=== PATIENT | female | born 1965 | race Hispanic/Latino ===

== ENCOUNTER 2020-03-03 21:08 | Inpatient (IN) | payer BC, SELFPAY ==
[2020-03-03] MEDS ORDERED: Furosemide 40 MG/4 ML VIAL ONE (21:38)
[2020-03-03] MEDS ORDERED: Cefepime 2 GM VIAL ONE (21:38)
[2020-03-03] MEDS ORDERED: methylPREDNISolone Sod Succ/PF 125 MG/2 ML VIAL ONE (21:38)
[2020-03-03] MEDS ORDERED: Vancomycin 1 GM/200 ML BAG ONE (21:38)
[2020-03-03 21:40] LABS: Actual Bicarbonate (HCO3a) 20.5 mEq/L (22-28); Analyzer IN Cardio ER; Base Excess (BEa) -3.9 mEq/L (-2.0 to +3.0); CO2 Tension 35.3 mmHg (35.0-45.0); Calcium, Ionized (arterial) 1.19 mmol/L (1.12-1.30); Carboxyhemoglobin (COHb) 0.6 gm% (0.0-3.0); Hemoglobin (Hb) 13.2 g/dL (12.0-16.0); Potassium - ABG Lab 5.11 mmol/L (3.70-5.30); pH, Arterial 7.38 (7.35-7.45)
[2020-03-03 21:56] LABS: #Lymphocytes 0.7 thou/uL (1.20-3.40); #Monocytes 0.4 thou/uL (0.11-0.59); #Neutrophils 6.3 thou/uL (1.40-6.50); %Eosinophils 0.3 % (0.0-10.0); %Lymphocytes 9.3 % (21.0-51.0); %Monocytes 5.2 % (0.0-10.0); %Neutrophils 85.3 % (42.0-75.0); Hemoglobin 12.4 g/dL (12.0-16.0); Mean Corpuscular HGB CONC 34.6 g/dL (32.0-36.0); Mean Corpuscular Hemoglobin 31.1 pg (27.0-31.0); Mean Corpuscular Volume 89.7 fL (78.0-98.0); Mean Platelet Volume 8.6 fL (7.4-10.4); Platelet Count 276 thou/uL (130-400); RBC Distribution Width 11.4 % (11.5-14.5); Red Blood Cell (RBC) Count 3.98 mill/uL (4.20-5.40); White Blood Cell (WBC) Count 7.4 thou/uL (4.8-10.8)
[2020-03-03 22:10] LABS: O2 Tension (PaO2), arterial 50.4 mmHg (80.0-100.0)
[2020-03-03 22:11] LABS: Puncture Site R RADIAL
[2020-03-03 22:12] LABS: ALV-art Gradient 547.175 (0-20)
[2020-03-03 22:22] LABS: ALT (SGPT) 69 U/L (8-55); AST (SGOT) 210 U/L (5-34); Albumin 3.1 g/dL (3.5-5.0); Alkaline Phosphatase 634 U/L (40-110); Anion Gap 20 mmol/L (10-20); BUN (Urea Nitrogen) 20 mg/dL (9.8-20.1); Bilirubin, Total 0.5 mg/dL (0.2-1.2); Calc. Creatinine Clearance 0 mL/min (70-130); Calcium 8.8 mg/dL (7.8-10.44); Carbon Dioxide 18 mmol/L (22-29); Chloride 89 mmol/L (98-107); Estimated GFR-MDRD 55; Globulin 3.9 g/dL (2.4-3.5); Glucose 410 mg/dL (70-105); Potassium 5.5 mmol/L (3.5-5.1); Sodium 121 mmol/L (136-145)
[2020-03-03] MEDS ORDERED: Insulin Regular 300 UNITS/3 ML VIAL ONE (22:29)
--- NOTE | 2020-03-03 23:08 | PDOC.FPRHP ---
- History of Present Illness Chief Complaint: COVID +, SOB History of Present Illness: Tierra Humphreys is a 54 yo female who presents to the ED via EMS for shortness of breath, hypoxia. She tested positive for COVID on 02/29/20 with symptoms starting on February 24 per patient. She steadily declined and called EMS for her shortness of breath. EMS noted her to have an O2 saturation of 64% on arrival. On transport with non-rebreather O2 sats were in the 70's. She was placed on Bipap with sats in 80's initially. Patient endorses symptoms started with a sore throat on February 24. She endorses a cough as well that is non productive as well as a fever as high as 101F. She denies any chills. She reports that she feels less SOB on the BIpap in the ER. She also endorses diarrhea over the last couple of days. She reports a hx of DM that was diagnosed many years ago but she treats this "naturally." She does not see a doctor regularly and has not seen a doctor in over 10 years. She works at a [employer], does not have any exposures that she knows of and is unsure how she got COVID. She denies any other medical hx other than COVID. PCP - none ED Course: Novolin 10 u, Cefepime, Vanc, Duoneb, Methylprednisolone, lasix - Allergies/Adverse Reactions Allergies Allergy/AdvReac Type Severity Reaction Status Date / Time No Known Drug Allergies Allergy Unverified 03/03/20 23:55 - Home Medications Medication Instructions Recorded Confirmed Type No Known 03/04/20 03/04/20 History - History PMHx: DM PSHx: c section FHx: DM Social: Denies ever smoking cigarettes, does not drink alcohol or any drug use - Review of Systems General: reports: fever/chills, fatigue. denies: weight/appetite/sleep changes , night sweats Eyes: denies: vision changes ENT: denies: nasal congestion, rhinorrhea Respiratory: reports: cough, shortness of breath, exercise intolerance. denies : congestion Cardiovascular: denies: chest pain, palpitation, edema Gastrointestinal: reports: diarrhea. denies: nausea, vomiting, constipation, abdominal pain Genitourinary: denies: dysuria Skin: denies: rashes Musculoskeletal: denies: pain, tenderness, swelling Neurological: denies: weakness - Vital signs BP: 108/72 HR: 112 RR: 23 Tmax: 100.4 Pox: 98% on CPAP Wt: 83.9 kg - Physical Exam Constitutional: NAD, awake, alert and oriented, well developed HEENT: normocephalic and atraumatic, EOMI Neck: supple, FROM Heart: RRR, normal S1/S2, no murmurs/rubs/gallops, pulses present, no edema Lungs: CTAB, no respiratory distress, good air movement, no rales/rhonchi, no wheezing -Lungs: on Bipap Abdomen: soft, non-tender, bowel sounds present, no masses/distention Musculoskeletal: ROM grossly normal Neurological: no focal deficit Skin: no rash/lesions Psychiatric: normal mood and affect, good judgment and insight, intact recent and remote memory FMR H&P: Results - Labs Result Diagrams: 03/04/20 04:15 03/03/20 21:41 Lab results: WBC 7.4 thou/uL (4.8-10.8) 03/03/20 21:41 Hgb 12.4 g/dL (12.0-16.0) 03/03/20 21:41 Hct 35.7 % (36.0-47.0) L 03/03/20 21:41 MCV 89.7 fL (78.0-98.0) 03/03/20 21:41 Plt Count 276 thou/uL (130-400) 03/03/20 21:41 Neutrophils % 85.3 % (42.0-75.0) H 03/03/20 21:41 ABG pH 7.38 (7.35-7.45) 03/03/20 21:32 ABG pCO2 35.3 mmHg (35.0-45.0) 03/03/20 21:32 ABG pO2 50.4 mmHg (80.0-100.0) L* 03/03/20 21:32 Sodium 121 mmol/L (136-145) L 03/03/20 21:41 Potassium 5.5 mmol/L (3.5-5.1) H 03/03/20 21:41 Chloride 89 mmol/L (98-107) L 03/03/20 21:41 Carbon Dioxide 18 mmol/L (22-29) L 03/03/20 21:41 BUN 20 mg/dL (9.8-20.1) 03/03/20 21:41 Creatinine 1.05 mg/dL (0.6-1.1) 03/03/20 21:41 Glucose 410 mg/dL (70-105) H 03/03/20 21:41 Lactic Acid 2.8 mmol/L (0.5-2.2) H 03/03/20 21:41 Calcium 8.8 mg/dL (7.8-10.44) 03/03/20 21:41 Total Bilirubin 0.5 mg/dL (0.2-1.2) 03/03/20 21:41 AST 210 U/L (5-34) H 03/03/20 21:41 ALT 69 U/L (8-55) H 03/03/20 21:41 Alkaline Phosphatase 634 U/L (40-110) H 03/03/20 21:41 B-Natriuretic Peptide 44.9 pg/mL (0-100) 03/03/20 21:41 Serum Total Protein 7.0 g/dL (6.0-8.3) 03/03/20 21:41 Albumin 3.1 g/dL (3.5-5.0) L 03/03/20 21:41 - EKG Interpretation EKG: Sinus tachycardia - Radiology Interpretation Chest x-ray Status: image reviewed by me Additional comment: bilateral patchy infiltrates, no cardiomegaly, no pleural effusion noted - official read not back at this time FMR H&P: A/P - Problem List (1) COVID-19 Current Visit: Yes Status: Acute Code(s): U07.1 - COVID-19 (2) Diabetes Current Visit: Yes Status: Acute Code(s): E11.9 - TYPE 2 DIABETES MELLITUS WITHOUT COMPLICATIONS (3) Transaminitis Current Visit: Yes Status: Acute Code(s): R74.0 - NONSPEC ELEV OF LEVELS OF TRANSAMNS & LACTIC ACID DEHYDRGNSE (4) Hyponatremia Current Visit: Yes Status: Acute Code(s): E87.1 - HYPO-OSMOLALITY AND HYPONATREMIA (5) Hyperkalemia Current Visit: Yes Status: Acute Code(s): E87.5 - HYPERKALEMIA - Plan Acute Hypoxic Resp Failure 2/2 COVID-19 Patient with positive test from [facility] on 02/28. CXR showing multifocal infiltrates. LFTs elevated, lymphopenia, LA 2.8. - Admit to IMCU. Will consult pulm, appreciate recommendations. - Sent nursing communication to request COVID + test from [facility] - Patient satting well on Bipap in the ER, will continue to monitor. May need to change to HFNC if necessary. Can also try proning. - Will continue on azithromycin. Procal pending. Will likely need to be started on remdesivir and given plasma but cannot start until COVID + result is faxed from [facility] per charge nurse. - Th lovenox - Daily CXR ordered. - Tylenol PRN for fever. - Droplet precautions. Moderate Hyponatremia with hyperkalemia Na 121 -> corrected to 126 with hyperglycemia, K 5.5 on admission. Unsure etiology - possible SIADH vs hypoaldosterone vs polydypsia. s/p Lasix in the ER. Appears hyponatremia may be chronic as it was low in 2013 as well. - Will monitor BMP closely q 4-6hours; urine sodium, potassium, osm, serum osm pending - Will fluid restrict, 1000ml/day - Goal is to raise Na by 4-6 mEq/L in a 24hr period to avoid ODS. DM Type 2 Glucose in the 400s on admission. S/p 10u insulin in the ER. No anion gap noted. - Mod SS, will start at 10u qAM lantus as patient is insulin naive.Will adjust as needed. - Glucose q2hr until sugars around 180-200 - BHB, A1c pending Transaminitis - likely 2/2 to COVID Dispo: admit to IMCU, LOS > 48hrs Diet: CC PPx: Th Lovenox PCP: none - patient will need to have close f/u outpatient Case discussed with Dr. Ayala FMEmilia H&P: Upper Level - Plan Date/Time: 03/03/20 [id number] I, [], have evaluated this patient and agree with findings/plan as outlined by dental intern resident. Pertinent changes/additions are listed here. Addendum - Attending - Attending Attestation Date/Time: 03/03/20 1844 I personally evaluated the patient and discussed the management with Dr. Nieves I agree with the History, Examination, Assessment and Plan documented above with any addition or exceptions noted below. 54 yo female with untreated DM now with COVID19, presents via EMS for severe hypoxic respiratory failure. Symptoms started on 02/24. Positive for COVID19 on 02/28. 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 Symptoms included cough, fever (101) , fatigue, diarrhea, and progressive SOB. VS, labs, imaging reviewed. - Hypoxic respiratory failure: Continue BiPAP at this time. Requiring EPAP of 8. O2 sat improving. Now 95%. But requiring 100% FIO2. RT to follow throughout the night. Switch to high flow NC when able. Initial was very fearful to be intubated if needed and therefore refused. After reassurance that she would be given medication to make her fall asleep patient was agreeable for intubation if needed. Pulm consult. Repeat ABG as needed. - COVID19: Tested on 02/26. Positive on 02/28. Unable to treat until positive test results faxed. Will continue azithro at this time. No evidence of underlying lung dz. Did not continue steroids. LDH and CRP pending. Place on droplet and contact precautions. Therapuetic anticoagulant. - Untreated DM: No gap at this time. Start basal insulin. Trend POC glucose every [address] on Mild SS. A1c ordered. Adjust basal insulin as needed. Will notice elevated glucose due to steroid dose in ER. Check renal function and if proteinuria present. - Electrolyte abnormalities: Na and K. Rule out SIADH. Possibly chronic. Was low in 2013 but also noted to have glucose in the 400s at that time as well. Trend K. Has been given albuterol and insulin. EKG without T wave changes. Kayexalate if not improved on follow labs. - Transaminitis: Likely related to COVID19 but risk factors for NAFLD and complications related to untreated DM. US in AM. Trend. Consider FLP. - PPX: Lovenox and PPI - Consult: Pulm Jasen
[2020-03-03] MEDS ORDERED: Ondansetron PF 4 MG/2 ML Vial IVP PRN (23:50)
[2020-03-03] MEDS ORDERED: Loperamide HCl 2 MG CAP PO PRN (23:50)
[2020-03-03] MEDS ORDERED: Acetaminophen 650 MG/20.3 ML UDCUP PO PRN (23:50)
[2020-03-03] MEDS ORDERED: Acetaminophen 325 MG Suppository PR PRN (23:50)
[2020-03-03] MEDS ORDERED: Dextrose 5% in Water 1,000 ML IV PRN (23:57)
[2020-03-03] MEDS ORDERED: Dextrose 50% Abboject 50 ML SYRINGE SLOW IVP PRN (23:57)
[2020-03-04 00:57] LABS: Hemoglobin A1c Greater than 14.0 % (4.0-6.0)
[2020-03-04 01:05] LABS: Lactic Acid 2.1 mmol/L (0.5-2.2)
[2020-03-04 01:14] LABS: Troponin I Less than 0.010 ng/mL (< 0.028)
[2020-03-04] MEDS: HumaLOG 300 UNITS/3 ML VIAL SC PRN ×8 (02:02→16:18)
[2020-03-04 02:47] LABS: Bacteria/HPF None Seen HPF (None Seen); RBC/HPF 0-3 HPF (0-3); Squamous Epithelial 0-3 HPF (0-3); WBC/HPF 0-3 HPF (0-3)
[2020-03-04 02:49] LABS: Potassium, Urine 39.1 mmol/L
[2020-03-04 04:32] LABS: Band 31 % (5-11); Hemoglobin 12.3 g/dL (12.0-16.0); Lymphocytes 6 % (21-51); MDiff Complete? YES; Mean Corpuscular HGB CONC 32.4 g/dL (32.0-36.0); Mean Corpuscular Hemoglobin 29.1 pg (27.0-31.0); Mean Corpuscular Volume 89.6 fL (78.0-98.0); Mean Platelet Volume 8.2 fL (7.4-10.4); Monocytes 1 % (0-10); Neutrophil 62 % (42-75); Platelet Count 302 thou/uL (130-400); Platelet Morphology Comment Appears Adequate; RBC Distribution Width 11.6 % (11.5-14.5); Red Blood Cell (RBC) Count 4.24 mill/uL (4.20-5.40); White Blood Cell (WBC) Count 8.5 thou/uL (4.8-10.8)
[2020-03-04 04:53] LABS: Troponin I 0.014 ng/mL (< 0.028)
[2020-03-04 04:57] LABS: ALT (SGPT) 78 U/L (8-55); AST (SGOT) 195 U/L (5-34); Albumin 3.2 g/dL (3.5-5.0); Anion Gap 17 mmol/L (10-20); Bilirubin, Total 0.4 mg/dL (0.2-1.2); Calc. Creatinine Clearance 60 mL/min (70-130); Calcium 8.9 mg/dL (7.8-10.44); Carbon Dioxide 20 mmol/L (22-29); Chloride 89 mmol/L (98-107); Estimated GFR-MDRD 47; Globulin 3.9 g/dL (2.4-3.5); Glucose 455 mg/dL (70-105); Protein, Total 7.1 g/dL (6.0-8.3); Sodium 121 mmol/L (136-145)
[2020-03-04 05:11] LABS: BUN (Urea Nitrogen) 24 mg/dL (9.8-20.1)
[2020-03-04] MEDS ORDERED: Insulin Regular 300 UNITS/3 ML VIAL IVP SCH (06:30)
--- NOTE | 2020-03-04 06:33 | PDOC.FM ---
- Subjective Subjective: Pt states that she is feeling a little better. She feels thirsty at this time and reports frequent urination prior to admission. She states she is still feeling short of breath. - Objective MAR Reviewed: Yes Vital Signs & Weight: Vital Signs (12 hours) Temp Pulse Pulse Ox 03/04/20 02:25 88 03/04/20 01:30 100 03/04/20 01:15 99.5 F Weight Weight 70.806 kg Most Recent Monitor Data Heart Rate from ECG 80 NIBP 130/84 NIBP BP-Mean 99 Respiration from ECG 19 SpO2 90 I&O: 03/02/20 03/03/20 03/04/20 06:59 06:59 06:59 Intake Total 80 Output Total 525 Balance -445 Result Diagrams: 03/04/20 04:15 03/04/20 10:08 Phys Exam - Physical Examination Constitutional: NAD Dry mm Diffuse rhonci Cardiovascular: RRR, no significant murmur Gastrointestinal: soft, non-tender, no distention, positive bowel sounds Musculoskeletal: no edema, pulses present Neurological: moves all 4 limbs Psychiatric: A&O x 3 Skin: cap refill <2 seconds Deviation from normal: Poor skin turgor Dx/Plan (1) COVID-19 Code(s): U07.1 - COVID-19 Status: Acute (2) Diabetes Code(s): E11.9 - TYPE 2 DIABETES MELLITUS WITHOUT COMPLICATIONS Status: Acute (3) Hyponatremia Code(s): E87.1 - HYPO-OSMOLALITY AND HYPONATREMIA Status: Acute - Plan Plan: Acute hypoxic respiratory failure 2/2 COVID-19 -Symptoms February 24, positive February 28 -Provide supportive care, will address COVID specific medications once we have received her COVID test -CXR shows bilateral opacities, worse on the right -Procal positive, will continue azithromycin and rocephin for CAP DM2 poorly controlled -Glucose still elevated -Giving 10 units of regular insulin IV this AM -Continue lantus for retirement control, will titrate up -BHB slightly elevated, pt is non-acidotic, anion gap is 12, Bicarb is 20 Hyponatremia -127 corrected -Checking lipid panel and TSH Transaminitis -Covid vs other etiologies CKD 3 -Mild bump in Cr, will trend during hospitalization Dehydration -Likely significantly fluid down -Will give fluids, pt has had decreased urine output since admission Addendum - Attending - Attending Attestation Date/Time: 03/04/20 2845 I personally evaluated the patient and discussed the management with Dr. Simms. I agree with the History, Examination, Assessment and Plan documented above with any addition or exceptions noted below. Patient here for COVID related hypoxic resp failure and pneumonia. Reports some breathing improvement today. COntinue usual care, Pulm consult. Once we get the confirmation lab from OSH, will work on convalescent plasma and possibly Remdesevir.
[2020-03-04 06:38] LABS: Alkaline Phosphatase 650 U/L (40-110)
--- NOTE | 2020-03-04 07:45 | RAD ---
EXAM: Single view of the chest HISTORY: Covid positive with dyspnea COMPARISON: 03/03/2020 FINDINGS: Single view of the chest shows a normal sized cardiomediastinal silhouette. Stable multifo andrew infiltrates are seen in the lungs. No pleural effusion is seen. The bones are unremarkable. IMPRESSION: Stable multifocal infiltrates
[2020-03-04] MEDS ORDERED: predniSONE 20 MG TAB PO SCH (08:00)
[2020-03-04] MEDS ORDERED: cefTRIAXone\\ROCEPHIN 1 GM in Sodium Chloride 0.9% 100 ML IVPB SCH (08:00)
[2020-03-04] MEDS: Azithromycin 250 MG TAB PO SCH (08:15)
[2020-03-04] MEDS: Enoxaparin Sodium 80 MG/0.8 ML SYRINGE SC SCH (08:21)
[2020-03-04] MEDS ORDERED: Lactated Ringer's 1,000 ML IV SCH (08:30)
[2020-03-04] MEDS ORDERED: Insulin Glargine 10 UNITS in Pre-Filled Syringe 1 EACH SC SCH (09:00)
[2020-03-04] MEDS ORDERED: Enoxaparin Sodium 40 MG/0.4 ML SYRINGE SC SCH (09:00)
--- NOTE | 2020-03-04 09:32 | RAD ---
PORTABLE CHEST: HISTORY: Positive COVID. COMPARISON: 09/03/2014 exam. FINDINGS: There are extensive bilateral infiltrates much more marked in the right upper and lower lung zones. IMPRESSION: Extensive infiltrative lung changes. POS: AGAPITO
[2020-03-04] MEDS: Lactated Ringer's 1,000 ML IV SCH ×2 (10:10→16:18)
[2020-03-04 10:36] LABS: Anion Gap 15 mmol/L (10-20); Anion Gap 18 mmol/L (10-20); BUN (Urea Nitrogen) 28 mg/dL (9.8-20.1); BUN (Urea Nitrogen) 29 mg/dL (9.8-20.1); Calc. Creatinine Clearance 74 mL/min (70-130); Calc. Creatinine Clearance 77 mL/min (70-130); Calcium 8.8 mg/dL (7.8-10.44); Carbon Dioxide 20 mmol/L (22-29); Chloride 92 mmol/L (98-107); Estimated GFR-MDRD 60; Estimated GFR-MDRD 63; Glucose 303 mg/dL (70-105); Glucose 307 mg/dL (70-105); Potassium 4.7 mmol/L (3.5-5.1); Sodium 122 mmol/L (136-145); Sodium 125 mmol/L (136-145)
[2020-03-04 10:38] LABS: Cardiac Risk 4.6 (Less than 4.5)
[2020-03-04] MEDS ORDERED: Tocilizumab 400 MG in Sodium Chloride 0.9% 80 ML IV SCH (11:30)
--- NOTE | 2020-03-04 12:38 | CON ---
DATE OF CONSULTATION: 03/04/2020 CONSULTING PHYSICIAN: [employer]. REASON FOR CONSULTATION: COVID-19 pneumonia. HISTORY OF PRESENT ILLNESS: A 54-year-old female, who became short of breath around 02/28. She was seen at [facility]. She was tested for COVID and the result came back two days later, positive. She has been worsening at home. She came into the ER last night complaining shortness of breath. She was found to be severely hypoxemic, was placed on high-flow oxygen. I have been asked to consult for the potential of starting the patient on Remdesivir and IL-6 inhibitor. Currently, we do not have a copy of the test result, but the resident is going to obtain that as we need to prove this in order to give the treatment above. PAST MEDICAL HISTORY: Diabetes mellitus. PAST SURGICAL HISTORY: . FAMILY MEDICAL HISTORY: Diabetes. SOCIAL HISTORY: Does not smoke. Does not consume alcohol. Does not use illicit drugs. REVIEW OF SYSTEMS: Remarkable for shortness of breath, dry cough, fever, and chills. PHYSICAL EXAMINATION: VITAL SIGNS: Temperature 97.7, pulse 82, blood pressure 113/74, and O2 saturation 92%, she is on 90% high-flow oxygen. HEENT: Unremarkable. NECK: No adenopathy or JVD. LUNGS: Diffuse crackles. CARDIAC: S1 and S2. Regular. ABDOMEN: Soft. EXTREMITIES: No edema. LABORATORY DATA: White blood cell count 8.5, hematocrit 38, and platelet count 302, 31% bands and 6% lymphocytes. A pH of 7.38, pCO2 of 35, and pO2 of 50. Sodium 122, potassium 4.7, chloride 92, CO2 of 20, BUN 29, creatinine 0.9, and glucose 303. X-ray shows diffuse bilateral infiltrates. ASSESSMENT: 1. COVID-19 pneumonia. 2. Acute hypoxic respiratory failure. PLAN: We do need to obtain the results of the COVID-19 tests from [facility]. After that, she would be an excellent candidate for Remdesivir, convalescence serum. IL-6 inhibitor can be infused if she continues to worsen. I agree with the dexamethasone. I would keep her on high-flow as long as possible to try to avoid intubating her. Job ID: [id number]
[2020-03-04 14:33] LABS: Anion Gap 14 mmol/L (10-20); BUN (Urea Nitrogen) 30 mg/dL (9.8-20.1); Calc. Creatinine Clearance 83 mL/min (70-130); Calcium 8.8 mg/dL (7.8-10.44); Carbon Dioxide 22 mmol/L (22-29); Chloride 92 mmol/L (98-107); Estimated GFR-MDRD 68; Glucose 273 mg/dL (70-105); Potassium 4.6 mmol/L (3.5-5.1); Sodium 123 mmol/L (136-145)
[2020-03-04 18:40] LABS: Anion Gap 14 mmol/L (10-20); BUN (Urea Nitrogen) 29 mg/dL (9.8-20.1); Calc. Creatinine Clearance 88 mL/min (70-130); Carbon Dioxide 22 mmol/L (22-29); Chloride 94 mmol/L (98-107); Estimated GFR-MDRD 73; Glucose 196 mg/dL (70-105); Potassium 4.7 mmol/L (3.5-5.1); Sodium 125 mmol/L (136-145)
[2020-03-04] MEDS: Dexamethasone 4 mg/ml Vial SLOW IVP SCH (20:08)
[2020-03-04 22:21] LABS: Anion Gap 13 mmol/L (10-20); BUN (Urea Nitrogen) 28 mg/dL (9.8-20.1); Calc. Creatinine Clearance 96 mL/min (70-130); Calcium 8.8 mg/dL (7.8-10.44); Carbon Dioxide 23 mmol/L (22-29); Chloride 95 mmol/L (98-107); Estimated GFR-MDRD 81; Glucose 151 mg/dL (70-105); Potassium 4.6 mmol/L (3.5-5.1); Sodium 126 mmol/L (136-145)
[2020-03-05] MEDS ORDERED: hydrOXYzine 25 MG TAB PO SCH (05:30)
[2020-03-05 06:00] LABS: Band 17 % (5-11); Hemoglobin 12.7 g/dL (12.0-16.0); Lymphocytes 9 % (21-51); MDiff Complete? YES; Mean Corpuscular HGB CONC 34.1 g/dL (32.0-36.0); Mean Corpuscular Hemoglobin 30.4 pg (27.0-31.0); Mean Corpuscular Volume 89.3 fL (78.0-98.0); Mean Platelet Volume 8.1 fL (7.4-10.4); Monocytes 3 % (0-10); Neutrophil 71 % (42-75); Platelet Count 349 thou/uL (130-400); Platelet Morphology Comment Appears Adequate; RBC Distribution Width 11.5 % (11.5-14.5); Red Blood Cell (RBC) Count 4.19 mill/uL (4.20-5.40); White Blood Cell (WBC) Count 11.8 thou/uL (4.8-10.8)
--- NOTE | 2020-03-05 06:11 | PDOC.FM ---
- Subjective Subjective: Pt required increased respiratory support overnight to the point of BiPAP. She states currently she is feeling better. She is hungry and is asking for food. - Objective Vital Signs & Weight: Vital Signs (12 hours) Pulse Pulse Ox 03/05/20 01:54 78 96 03/04/20 20:00 94 L Weight Admit Weight 70.806 kg Weight 70.806 kg Most Recent Monitor Data Heart Rate from ECG 84 NIBP 159/100 NIBP BP-Mean 119 Respiration from ECG 24 SpO2 92 I&O: 03/03/20 03/04/20 03/05/20 06:59 06:59 06:59 Intake Total 80 3180 Output Total 525 1375 Balance -445 1805 Result Diagrams: 03/05/20 05:36 03/05/20 05:36 Phys Exam - Physical Examination Constitutional: NAD HEENT: moist MMs Neck: no JVD Diffuse Rhonchi, fair air movement Cardiovascular: RRR, no significant murmur Gastrointestinal: soft, non-tender, no distention, positive bowel sounds Musculoskeletal: no edema, pulses present Neurological: moves all 4 limbs Psychiatric: A&O x 3 Skin: cap refill <2 seconds Dx/Plan (1) COVID-19 Code(s): U07.1 - COVID-19 Status: Acute (2) Diabetes Code(s): E11.9 - TYPE 2 DIABETES MELLITUS WITHOUT COMPLICATIONS Status: Acute (3) Hyponatremia Code(s): E87.1 - HYPO-OSMOLALITY AND HYPONATREMIA Status: Acute - Plan Plan: Acute hypoxic respiratory failure 2/2 COVID-19 -Symptoms February 24, positive February 28 -Provide supportive care, pt has received IL-6 inhibitor, and convalescent plasma -CXR shows bilateral opacities, worse on the right AM xray is unimproved -Procal positive, will continue azithromycin and rocephin for CAP DM2 poorly controlled -Giving 10 units of regular insulin IV this AM -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 Simms. I agree with the History, Examination, Assessment and Plan documented above with any addition or exceptions noted below.
[2020-03-05 06:24] LABS: ALT (SGPT) 66 U/L (8-55); AST (SGOT) 90 U/L (5-34); Albumin 3.1 g/dL (3.5-5.0); Alkaline Phosphatase 685 U/L (40-110); Anion Gap 16 mmol/L (10-20); BUN (Urea Nitrogen) 25 mg/dL (9.8-20.1); Bilirubin, Total 0.2 mg/dL (0.2-1.2); Calc. Creatinine Clearance 101 mL/min (70-130); Calcium 8.6 mg/dL (7.8-10.44); Carbon Dioxide 20 mmol/L (22-29); Chloride 98 mmol/L (98-107); Estimated GFR-MDRD 86; Globulin 3.6 g/dL (2.4-3.5); Glucose 172 mg/dL (70-105); Potassium 4.8 mmol/L (3.5-5.1); Protein, Total 6.7 g/dL (6.0-8.3); Sodium 129 mmol/L (136-145)
[2020-03-05] MEDS ORDERED: hydrOXYzine 25 MG TAB PO PRN (07:28)
[2020-03-05 08:31] LABS: Base Excess (BEa) -0.6 mEq/L (-2.0 to +3.0); CO2 Tension 39.3 mmHg (35.0-45.0); Calcium, Ionized (arterial) 1.21 mmol/L (1.12-1.30); Hemoglobin (Hb) 13.2 g/dL (12.0-16.0); Potassium - ABG Lab 4.53 mmol/L (3.70-5.30)
[2020-03-05] MEDS: Azithromycin 250 MG TAB PO SCH (08:46)
[2020-03-05] MEDS: Enoxaparin Sodium 80 MG/0.8 ML SYRINGE SC SCH (08:47)
[2020-03-05] MEDS: Dexamethasone 4 mg/ml Vial SLOW IVP SCH ×2 (08:47→20:22)
[2020-03-05 08:51] LABS: Puncture Site L.R.
[2020-03-05 08:52] LABS: ALV-art Gradient 381.975 (0-20)
[2020-03-05] MEDS ORDERED: cefTRIAXone\\ROCEPHIN 1 GM in Sodium Chloride 0.9% 100 ML IVPB SCH (09:00)
[2020-03-05] MEDS ORDERED: Insulin Glargine 15 UNITS in Pre-Filled Syringe 1 EACH SC SCH (09:00)
--- NOTE | 2020-03-05 09:07 | RAD ---
PORTABLE CHEST: DATE: 03/05/2020. PROVIDED CLINICAL HISTORY: Respiratory insufficiency. COMPARISON: 03/04/2020. FINDINGS: Significant interval change with respect to the prior examination is not apparent. IMPRESSION: As above. POS: DAVID
--- NOTE | 2020-03-05 09:50 | PRG ---
DATE OF SERVICE: 03/05/2020 SUBJECTIVE: The patient is doing better. She is resting comfortably on BiPAP, had no complaints. OBJECTIVE: VITAL SIGNS: Temperature 98.2, pulse 87, blood pressure 162/102, O2 saturation 97%. HEENT: Unremarkable. NECK: No JVD. LUNGS: Few crackles. CARDIAC: S1 and S2. Regular. ABDOMEN: Soft. EXTREMITIES: No edema. LABORATORY DATA: White blood cell count 11.8, hematocrit 37.4, and platelet count 349. D-dimer 1.96, pH of 7.4, pCO2 of 39, pO2 of 68 on BiPAP 16/8, FiO2 of 70%. Sodium 129, potassium 4.8, chloride 98, CO2 of 20, BUN 25, creatinine 0.7, glucose 172, AST 90, ALT 66. The patient looks like she received convalescent serum yesterday. She also got IL-6 inhibitor and is on dexamethasone. ASSESSMENT: 1. Coronavirus disease 2019 pneumonia with acute respiratory failure requiring noninvasive ventilation. 2. Elevated liver enzymes, which eliminated her as a candidate for Remdesivir. Plan, wean FiO2 as tolerated. 3. Can alternate between BiPAP and high-flow oxygen. 4. We would consider stopping Rocephin. 5. Continue dexamethasone. Job ID: [id number]
[2020-03-05] MEDS: HumaLOG 300 UNITS/3 ML VIAL SC PRN ×3 (11:51→20:36)
[2020-03-06 03:58] LABS: Band 1 % (5-11); Hemoglobin 12.8 g/dL (12.0-16.0); Lymphocytes 3 % (21-51); MDiff Complete? YES; Mean Corpuscular HGB CONC 34.1 g/dL (32.0-36.0); Mean Corpuscular Hemoglobin 30.3 pg (27.0-31.0); Mean Platelet Volume 7.6 fL (7.4-10.4); Monocytes 4 % (0-10); Neutrophil 92 % (42-75); Platelet Count 437 thou/uL (130-400); Platelet Morphology Comment Appears Increased; RBC Distribution Width 11.7 % (11.5-14.5); RBC Morphology Normal; Red Blood Cell (RBC) Count 4.24 mill/uL (4.20-5.40); White Blood Cell (WBC) Count 12.3 thou/uL (4.8-10.8)
[2020-03-06 04:50] LABS: ALT (SGPT) 56 U/L (8-55); AST (SGOT) 46 U/L (5-34); Alkaline Phosphatase 585 U/L (40-110); Anion Gap 11 mmol/L (10-20); BUN (Urea Nitrogen) 25 mg/dL (9.8-20.1); Bilirubin, Total 0.3 mg/dL (0.2-1.2); CRP (Inflammatory) 5.97 mg/dL (= or < 0.5); Calc. Creatinine Clearance 103 mL/min (70-130); Calcium 8.5 mg/dL (7.8-10.44); Carbon Dioxide 27 mmol/L (22-29); Chloride 99 mmol/L (98-107); Estimated GFR-MDRD 90; Globulin 3.5 g/dL (2.4-3.5); Glucose 161 mg/dL (70-105); Potassium 4.4 mmol/L (3.5-5.1); Protein, Total 6.5 g/dL (6.0-8.3); Sodium 133 mmol/L (136-145)
--- NOTE | 2020-03-06 06:11 | PDOC.FM ---
- Subjective Subjective: Pt states that she is feeling better this morning. Nursing reports she has tolerated Bipap overnight with occasional sips of water. - Objective MAR Reviewed: Yes Vital Signs & Weight: Vital Signs (12 hours) Temp Pulse Pulse Ox 03/06/20 04:00 98.2 F 03/06/20 02:56 72 03/06/20 00:00 97.8 F 03/05/20 22:50 83 03/05/20 20:00 97.6 F 91 L Weight Admit Weight 70.806 kg Weight 69.207 kg Most Recent Monitor Data Heart Rate from ECG 73 NIBP 147/86 NIBP BP-Mean 106 Respiration from ECG 21 SpO2 91 I&O: 03/04/20 03/05/20 03/06/20 06:59 06:59 06:59 Intake Total 80 5300 870 Output Total 525 1750 1325 Balance -445 2810 455 Result Diagrams: 03/06/20 03:24 03/06/20 03:24 Phys Exam - Physical Examination Constitutional: NAD On bipap Diffuse rhonchi Cardiovascular: RRR, no significant murmur Gastrointestinal: soft, non-tender, no distention, positive bowel sounds Musculoskeletal: no edema, pulses present Neurological: moves all 4 limbs Psychiatric: A&O x 3 Skin: cap refill <2 seconds Dx/Plan (1) COVID-19 Code(s): U07.1 - COVID-19 Status: Acute (2) Diabetes Code(s): E11.9 - TYPE 2 DIABETES MELLITUS WITHOUT COMPLICATIONS Status: Acute (3) Hyponatremia Code(s): E87.1 - HYPO-OSMOLALITY AND HYPONATREMIA Status: Acute - Plan Plan: Acute hypoxic respiratory failure 2/2 COVID-19 -Symptoms February 24, positive February 28 -Provide supportive care, pt has received IL-6 inhibitor, and convalescent plasma -CXR shows bilateral opacities, worse on the right AM xray is unimproved -Procal positive, will continue azithromycin and rocephin for CAP DM2 poorly controlled -Giving 10 units of regular insulin IV this AM -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
--- NOTE | 2020-03-06 08:22 | RAD ---
PORTABLE CHEST: HISTORY: CCU followup. Ventilator followup. COMPARISON: 03/05/2020. FINDINGS: Hazy infiltrates throughout the right lung and left perihilar and left lower lung infiltrates. Bivins samm left hemidiaphragm. IMPRESSION: Stable findings from yesterday. POS: AGW
[2020-03-06] MEDS ORDERED: Insulin Glargine 20 UNITS in Pre-Filled Syringe 1 EACH SC SCH (09:00)
[2020-03-06 09:10] LABS: Actual Bicarbonate (HCO3a) 28.9 mEq/L (22-28); Base Excess (BEa) 4.2 mEq/L (-2.0 to +3.0); CO2 Tension 43.7 mmHg (35.0-45.0); Calcium, Ionized (arterial) 1.18 mmol/L (1.12-1.30); Carboxyhemoglobin (COHb) 0.4 gm% (0.0-3.0); Hemoglobin (Hb) 13.8 g/dL (12.0-16.0); Potassium - ABG Lab 4.45 mmol/L (3.70-5.30); pH, Arterial 7.44 (7.35-7.45)
[2020-03-06 09:15] LABS: O2 Tension (PaO2), arterial 50.2 mmHg (80.0-100.0); Puncture Site RRA
[2020-03-06 09:16] LABS: ALV-art Gradient 322.975 (0-20)
[2020-03-06] MEDS: Azithromycin 250 MG TAB PO SCH (09:32)
[2020-03-06] MEDS: Dexamethasone 4 mg/ml Vial SLOW IVP SCH ×2 (09:38→20:21)
[2020-03-06] MEDS: Enoxaparin Sodium 80 MG/0.8 ML SYRINGE SC SCH (09:38)
--- NOTE | 2020-03-06 11:41 | PRG ---
DATE OF SERVICE: 03/06/2020 Please see note from Dr. Simms, for which, I agree. The patient was seen, discussed, evaluated, and examined with the residents. This is an unfortunate COVID positive patient, who is requiring BiPAP with FiO2 of 0.7 to keep herself oxygenated. She is currently oxygenating fairly well. Pulmonary is involved as well. She is still on azithromycin and Decadron twice daily. Controlling her sugars as she initially came in, her hemoglobin A1c was 14. Unfortunately, because of liver function test was elevated, was not a candidate for antivirals, but did get IL6 inhibitor and convalescent plasma. She is still on Rocephin . Otherwise, supportive management and full code may end up needing intubation, we will try to avoid that as much as we can obviously. Blood gas this morning was not too bad, pH 7.4, PO2 of 50, although, it was a little bit better yesterday, PO2 was 68 yesterday. Job ID: [id number]
--- NOTE | 2020-03-06 11:49 | PRG ---
DATE OF SERVICE: 03/06/2020 SUBJECTIVE: Ms. Humphreys is doing about the same. She remains on alternating high-flow oxygen and BiPAP, but requiring 60%. Radiographically, she is not any different. OBJECTIVE: VITAL SIGNS: Blood pressure is 172/105, heart rate is 80, saturation 99%. She is currently afebrile. GENERAL: The patient is not in distress. It would appear as though we might be able to reduce oxygen flow rates, concentration a bit. NECK: There is no adenopathy or JVD. LUNGS: Bilateral rhonchi without wheezing. She does have increased work of breathing. There is no dullness. HEART: Regular rate and rhythm. ABDOMEN: Soft. There is no organomegaly. Bowel sounds are normal. There is no edema. LABORATORY DATA: White count today 12,300, hemoglobin is 12.8, hematocrit 37.7, and platelet count 437,000, there is only 1% bands. Blood gas includes pH 7.44, CO2 of 43, pO2 of 50, and bicarbonate of 29. This was obtained on BiPAP, pressure 16/8 with oxygen 60%. Electrolytes today include sodium 133, potassium 4.4, chloride 99, CO2 is 27, BUN 25, creatinine 0.6. CRP is 6. Alkaline phosphatase is high. ALT and AST are only trivially elevated. IMPRESSION: COVID pneumonia, having received convalescent plasma, Decadron, empiric antibiotic, and IL-6 inhibitor. Will not significantly improve, she is not actively deteriorating. PLAN: We will continue supportive therapies including noninvasive ventilatory support. She is quite tenuous and may ultimately require intubation. Pulmonary Service will continue to follow. Job ID: [id number]
--- NOTE | 2020-03-06 17:06 | EKG ---
Test Reason : Blood Pressure : / mmHG Vent. Rate : 110 BPM Atrial Rate : 110 BPM P-R Int : 138 ms QRS Dur : 074 ms QT Int : 310 ms P-R-T Axes : 023 015 055 degrees QTc Int : 419 ms Sinus tachycardia Otherwise normal ECG Confirmed by MAYO ROBLES ([id number]), slot editor MORE WANG ([id number]) on 03/06/2020 5:05:55 PM Referred By: Confirmed By:MAYO Patel
[2020-03-06] MEDS: HumaLOG 300 UNITS/3 ML VIAL SC PRN (20:22)
[2020-03-07 03:39] LABS: Band 6 % (5-11); Hemoglobin 13.9 g/dL (12.0-16.0); Lymphocytes 11 % (21-51); MDiff Complete? YES; Mean Corpuscular HGB CONC 33.8 g/dL (32.0-36.0); Mean Corpuscular Hemoglobin 30.2 pg (27.0-31.0); Mean Corpuscular Volume 89.4 fL (78.0-98.0); Mean Platelet Volume 7.2 fL (7.4-10.4); Metamyelocyte 1 % (0-0); Monocytes 2 % (0-10); Neutrophil 80 % (42-75); Platelet Count 497 thou/uL (130-400); Platelet Morphology Comment Appears Increased; RBC Distribution Width 11.6 % (11.5-14.5); Red Blood Cell (RBC) Count 4.61 mill/uL (4.20-5.40); White Blood Cell (WBC) Count 11.2 thou/uL (4.8-10.8)
[2020-03-07 03:55] LABS: ALT (SGPT) 44 U/L (8-55); AST (SGOT) 22 U/L (5-34); Albumin 3.1 g/dL (3.5-5.0); Alkaline Phosphatase 526 U/L (40-110); Anion Gap 14 mmol/L (10-20); BUN (Urea Nitrogen) 21 mg/dL (9.8-20.1); Bilirubin, Total 0.3 mg/dL (0.2-1.2); CRP (Inflammatory) 3.72 mg/dL (= or < 0.5); Calc. Creatinine Clearance 101 mL/min (70-130); Calcium 8.6 mg/dL (7.8-10.44); Carbon Dioxide 28 mmol/L (22-29); Chloride 95 mmol/L (98-107); Estimated GFR-MDRD 86; Globulin 3.5 g/dL (2.4-3.5); Glucose 231 mg/dL (70-105); Potassium 4.6 mmol/L (3.5-5.1); Protein, Total 6.6 g/dL (6.0-8.3); Sodium 132 mmol/L (136-145)
[2020-03-07] MEDS: HumaLOG 300 UNITS/3 ML VIAL SC PRN ×3 (04:35→16:16)
--- NOTE | 2020-03-07 06:24 | PDOC.FM ---
- Subjective Subjective: Pt states she is doing about the same today. She denies SOB on the BiPap. She states she is hungry. - Objective MAR Reviewed: Yes Vital Signs & Weight: Vital Signs (12 hours) Temp Pulse Pulse Ox 03/07/20 04:00 97.9 F 03/07/20 03:22 73 97 03/07/20 00:00 97.9 F 03/06/20 23:04 69 03/06/20 20:00 97.8 F 100 03/06/20 19:32 73 Weight Admit Weight 70.806 kg Weight 70.942 kg Most Recent Monitor Data Heart Rate from ECG 90 NIBP 168/115 NIBP BP-Mean 132 Respiration from ECG 22 SpO2 100 I&O: 03/05/20 03/06/20 03/07/20 06:59 06:59 06:59 Intake Total 5300 890 370 Output Total 1750 2911 1235 Balance 3550 -1585 -865 Result Diagrams: 03/07/20 03:11 03/07/20 03:11 Phys Exam - Physical Examination Constitutional: NAD Neck: no JVD Respiratory: no wheezing diffuse rhonchi Cardiovascular: RRR, no significant murmur Gastrointestinal: soft, non-tender, no distention, positive bowel sounds Musculoskeletal: no edema, pulses present Neurological: moves all 4 limbs Psychiatric: A&O x 3 Skin: cap refill <2 seconds Dx/Plan (1) COVID-19 Code(s): U07.1 - COVID-19 Status: Acute (2) Diabetes Code(s): E11.9 - TYPE 2 DIABETES MELLITUS WITHOUT COMPLICATIONS Status: Acute (3) Hyponatremia Code(s): E87.1 - HYPO-OSMOLALITY AND HYPONATREMIA Status: Acute - Plan Plan: Acute hypoxic respiratory failure 2/2 COVID-19 -Symptoms February 24, positive February 28 -Provide supportive care, pt has received IL-6 inhibitor, and convalescent plasma -CXR shows bilateral opacities, worse on the right AM xray is unimproved -Procal positive, will continue azithromycin and rocephin for CAP -Pending AM ABG -CXR appears improved this morning DM2 poorly controlled -Giving 10 units of regular insulin IV this AM -Continue lantus for labor service representative control, will titrate up Hyponatremia, improving -Hypovolemic, hyponatremia 2/2 diabetes Transaminitis -Covid vs other etiologies LALITO -Improved Dehydration -Improved
[2020-03-07 08:39] LABS: Base Excess (BEa) 6.6 mEq/L (-2.0 to +3.0); CO2 Tension 43.3 mmHg (35.0-45.0); Calcium, Ionized (arterial) 1.17 mmol/L (1.12-1.30); Carboxyhemoglobin (COHb) 0.4 gm% (0.0-3.0); Hemoglobin (Hb) 14.5 g/dL (12.0-16.0); O2 Tension (PaO2), arterial 112.3 mmHg (80.0-100.0); pH, Arterial 7.47 (7.35-7.45)
[2020-03-07 08:40] LABS: ALV-art Gradient 332.675 (0-20); Puncture Site RRA
--- NOTE | 2020-03-07 08:48 | RAD ---
AP CHEST: HISTORY: CCU followup. COMPARISON: 03/06/20 FINDINGS: Elevated left hemidiaphragm is again noted. Hazy bilateral perihilar infiltrates are seen. The infilt rates appear improved when compared to yesterday. POS: AGW
[2020-03-07] MEDS: Azithromycin 250 MG TAB PO SCH (09:36)
[2020-03-07] MEDS: Amlodipine 5 MG TAB PO SCH (09:36)
[2020-03-07] MEDS: Enoxaparin Sodium 80 MG/0.8 ML SYRINGE SC SCH ×2 (09:37→20:06)
[2020-03-07] MEDS: Dexamethasone 4 mg/ml Vial SLOW IVP SCH ×2 (09:38→20:05)
[2020-03-07] MEDS: Insulin Glargine 25 UNITS in Pre-Filled Syringe 1 EACH SC SCH (09:43)
--- NOTE | 2020-03-07 13:23 | PRG ---
DATE OF SERVICE: 03/07/2020 SUBJECTIVE: Ms. Humphreys is doing about the same. Remains on BiPAP. She is able to take it off briefly for meals. She has not had any pain. She denies any nausea, vomiting. OBJECTIVE: VITAL SIGNS: Blood pressure 144/80, heart rate is 73, pulse ox is 100% on supplemental oxygen. Respiratory rate is 20. GENERAL: She is mildly tachypneic. LUNGS: Show coarse rhonchi bilaterally without wheezing. HEART: Regular rate and rhythm. ABDOMEN: Soft. There is no organomegaly. Bowel sounds are normal. She has no edema. LABORATORY DATA: White count 11,200, hemoglobin is 13.9, platelet count 497,000. She has 80 segs and 6 bands. Her blood gas includes pH 7.47, CO2 of 43, PO2 of 112, and bicarbonate of 31. This was obtained on BiPAP 16/8 with FiO2 of 70%. Chemistries today include a sodium of 132, potassium 4.6, chloride 95, CO2 is 28, BUN 21, and creatinine 0.7. Her chest x-ray today shows continued bilateral infiltrates, slightly improved versus yesterday. IMPRESSION: COVID pneumonia, showing some initial improvement from a radiographic perspective, but still requiring BiPAP with high oxygen demands. We will continue to provide supportive care. Job ID: [id number]
--- NOTE | 2020-03-07 16:42 | PRG ---
DATE OF SERVICE: Please see the note from Dr. Simms for which I agree. The patient was seen, evaluated, discussed, and examined with the residents at bedside. Generally speaking. This COVID patient does seem to show signs of improvement. The infiltrates on chest x-ray look better. Her blood gas this morning also looked better with a pH of 7.47, PO2 of 112 and pCO2 of 43. So, drastic improvement from yesterday. We will try to wean her off the oxygen, having occasional time off the BiPAP to eat and drink, but for the most part, we will continue same management on her. Still very critical, but obviously encouraging that things seem to be going in the right direction. Inflammatory markers also seem to be trending downward and sugars little bit better controlled. Job ID: [id number]
[2020-03-08 03:44] LABS: ALT (SGPT) 31 U/L (8-55); AST (SGOT) 16 U/L (5-34); Albumin 3.2 g/dL (3.5-5.0); Alkaline Phosphatase 436 U/L (40-110); Anion Gap 8 mmol/L (10-20); BUN (Urea Nitrogen) 22 mg/dL (9.8-20.1); Bilirubin, Total 0.4 mg/dL (0.2-1.2); Calc. Creatinine Clearance 101 mL/min (70-130); Calcium 8.7 mg/dL (7.8-10.44); Carbon Dioxide 31 mmol/L (22-29); Chloride 94 mmol/L (98-107); Estimated GFR-MDRD 86; Globulin 3.3 g/dL (2.4-3.5); Glucose 235 mg/dL (70-105); Potassium 4.3 mmol/L (3.5-5.1); Protein, Total 6.5 g/dL (6.0-8.3); Sodium 129 mmol/L (136-145)
[2020-03-08 03:59] LABS: Band 1 % (5-11); Hemoglobin 14.3 g/dL (12.0-16.0); Lymphocytes 8 % (21-51); MDiff Complete? YES; Mean Corpuscular HGB CONC 33.2 g/dL (32.0-36.0); Mean Corpuscular Hemoglobin 29.7 pg (27.0-31.0); Mean Corpuscular Volume 89.6 fL (78.0-98.0); Monocytes 1 % (0-10); Neutrophil 90 % (42-75); Platelet Count 532 thou/uL (130-400); Platelet Morphology Comment Appears Increased; RBC Distribution Width 11.6 % (11.5-14.5); RBC Morphology Normal; Red Blood Cell (RBC) Count 4.83 mill/uL (4.20-5.40); White Blood Cell (WBC) Count 10.6 thou/uL (4.8-10.8)
--- NOTE | 2020-03-08 06:17 | PDOC.FM ---
- Subjective Subjective: Patient says she feels better. She has been able to tolerate being off BiPAP and is currently on 5L N/C. Still requires BiPAP at night. She currently has no complaints. - Objective MAR Reviewed: Yes Vital Signs & Weight: Vital Signs (12 hours) Pulse Pulse Ox 03/08/20 01:00 65 03/07/20 20:00 99 03/07/20 19:58 74 Weight Admit Weight 70.806 kg Weight 70.715 kg Most Recent Monitor Data Heart Rate from ECG 65 NIBP 134/73 NIBP BP-Mean 93 Respiration from ECG 17 SpO2 100 I&O: 03/06/20 03/07/20 03/08/20 06:59 06:59 06:59 Intake Total 131 359 2250 Output Total 7465 2185 900 Balance -1585 -1715 201 Result Diagrams: 03/09/20 03:19 03/09/20 03:19 Phys Exam - Physical Examination Constitutional: NAD (exam per Dr. Garcia) HEENT: moist MMs Neck: supple Respiratory: clear to auscultation bilateral Cardiovascular: RRR, no significant murmur Gastrointestinal: no distention Musculoskeletal: no edema, pulses present Neurological: non-focal, moves all 4 limbs Psychiatric: normal affect, A&O x 3 Skin: no rash, normal turgor Dx/Plan (1) COVID-19 Code(s): U07.1 - COVID-19 Status: Acute (2) Diabetes Code(s): E11.9 - TYPE 2 DIABETES MELLITUS WITHOUT COMPLICATIONS Status: Acute Qualifiers: Diabetes mellitus type: type 2 Diabetes mellitus prison insulin use: without extermination inspector use Diabetes mellitus complication status: with hyperglycemia Qualified Code(s): E11.65 - Type 2 diabetes mellitus with hyperglycemia (3) Hyponatremia Code(s): E87.1 - HYPO-OSMOLALITY AND HYPONATREMIA Status: Acute (4) Transaminitis Code(s): R74.0 - NONSPEC ELEV OF LEVELS OF TRANSAMNS & LACTIC ACID DEHYDRGNSE Status: Acute - Plan Plan: Patient is a 54 yo female who presented with SOB and hypoxia is found to have COVID 19: #Acute hypoxic respiratory failure 2/2 COVID-19 -Symptoms February 24, positive February 28 -Provide supportive care, pt has received IL-6 inhibitor, and convalescent plasma. Not candidate for Remdesevir d/t elevated transaminases -CXR shows bilateral opacities, worse on the right, monitor AM xray -Procal positive, will continue azithromycin and rocephin for CAP -Continue Decadron -Pending AM ABG -CXR pending this AM -still requiring BiPAP with intermittent breaks using high flow N/C #DM2, poorly controlled -A1C 14% -Humalog moderate SSI -Continue lantus for prison control, will titrate up, currently at 25 units qAM started 03/07 #Hyponatremia, improving -Hypovolemic, hyponatremia 2/2 diabetes #Transaminitis -Covid vs other etiologies #LALITO -Improved #Dehydration -Improved Diet: CC VTE: th Lovenox Code status: FULL Dispo: Stable, condition overall improving this morning. Continue to monitor respiratory status. Anticipate discharge in >48 hours. Addendum - Attending - Attending Attestation Date/Time: 03/08/20 [id number] I personally evaluated the patient and discussed the management with Dr. Means I agree with the History, Examination, Assessment and Plan documented above with any addition or exceptions noted below - Patient feeling better; decreased SOB. Tolerating diet. Afebrile VSS. A/P: 1) COVID pneumonia - improving; using BiPap at night and on NC during day; continue to wean as tolerated. 2) DM- continue to adjust meds. Diabetes education.
[2020-03-08 06:29] VITALS: BMI 29.0
--- NOTE | 2020-03-08 07:56 | RAD ---
EXAM: Portable chest PROVIDED CLINICAL HISTORY: Respiratory insufficiency COMPARISON: 03/07/2020 FINDINGS: Significant interval change with respect to the prior examination is not apparent. IMPRESSION: As above.
[2020-03-08] MEDS: Dexamethasone 4 mg/ml Vial SLOW IVP SCH ×2 (08:28→20:43)
[2020-03-08] MEDS: Amlodipine 5 MG TAB PO SCH (08:28)
[2020-03-08] MEDS: Enoxaparin Sodium 80 MG/0.8 ML SYRINGE SC SCH ×2 (08:29→20:43)
[2020-03-08] MEDS: Insulin Glargine 25 UNITS in Pre-Filled Syringe 1 EACH SC SCH (08:29)
[2020-03-08] MEDS: HumaLOG 300 UNITS/3 ML VIAL SC PRN ×4 (08:34→20:52)
[2020-03-08] MEDS ORDERED: Insulin Glargine 30 UNITS in Pre-Filled Syringe 1 EACH SC SCH (09:00)
[2020-03-08 09:27] LABS: Actual Bicarbonate (HCO3a) 31.6 mEq/L (22-28); Base Excess (BEa) 6.8 mEq/L (-2.0 to +3.0); CO2 Tension 45.4 mmHg (35.0-45.0); Calcium, Ionized (arterial) 1.17 mmol/L (1.12-1.30); Carboxyhemoglobin (COHb) 0.3 gm% (0.0-3.0); Hemoglobin (Hb) 15.2 g/dL (12.0-16.0); O2 Tension (PaO2), arterial 64.3 mmHg (80.0-100.0); Potassium - ABG Lab 4.14 mmol/L (3.70-5.30); pH, Arterial 7.46 (7.35-7.45)
[2020-03-08 09:29] LABS: Puncture Site RR
[2020-03-08] MEDS ORDERED: Insulin Glargine 5 UNITS in Pre-Filled Syringe 1 EACH SC SCH (09:30)
--- NOTE | 2020-03-08 16:33 | PRG ---
DATE OF SERVICE: 03/08/2020 OBJECTIVE: VITAL SIGNS: Sats are in the 90s. Heart is in the 80s. Blood pressure 124/67. GENERAL: Overall, she is clinically stable. DIAGNOSTIC DATA: Chest radiograph is unchanged. for quite some time most likely. IMPRESSION: COVID-19 pneumonia, clinically stable. She has been switched to nasal cannula. If she remains stable on nasal cannula, she can transfer out of the intermediate care unit. Job ID: [id number]
[2020-03-09 03:56] LABS: Band 12 % (5-11); Hemoglobin 14.3 g/dL (12.0-16.0); Lymphocytes 5 % (21-51); MDiff Complete? YES; Mean Corpuscular HGB CONC 32.4 g/dL (32.0-36.0); Mean Corpuscular Volume 89.6 fL (78.0-98.0); Mean Platelet Volume 7.1 fL (7.4-10.4); Monocytes 2 % (0-10); Neutrophil 81 % (42-75); Platelet Count 563 thou/uL (130-400); Platelet Morphology Comment Appears Increased; RBC Distribution Width 11.5 % (11.5-14.5); Red Blood Cell (RBC) Count 4.93 mill/uL (4.20-5.40); White Blood Cell (WBC) Count 10.4 thou/uL (4.8-10.8)
[2020-03-09 04:03] LABS: ALT (SGPT) 28 U/L (8-55); AST (SGOT) 19 U/L (5-34); Albumin 3.2 g/dL (3.5-5.0); Alkaline Phosphatase 387 U/L (40-110); Anion Gap 11 mmol/L (10-20); BUN (Urea Nitrogen) 20 mg/dL (9.8-20.1); Bilirubin, Total 0.3 mg/dL (0.2-1.2); Calc. Creatinine Clearance 95 mL/min (70-130); Calcium 8.9 mg/dL (7.8-10.44); Carbon Dioxide 31 mmol/L (22-29); Chloride 94 mmol/L (98-107); Estimated GFR-MDRD 81; Globulin 3.3 g/dL (2.4-3.5); Glucose 229 mg/dL (70-105); Potassium 4.6 mmol/L (3.5-5.1); Protein, Total 6.5 g/dL (6.0-8.3); Sodium 131 mmol/L (136-145)
[2020-03-09] MEDS: HumaLOG 300 UNITS/3 ML VIAL SC PRN ×3 (05:39→15:54)
--- NOTE | 2020-03-09 07:00 | PDOC.FM ---
- Subjective Subjective: Patient doing well this morning. She has been able to tolerate being off BiPAP overnight and is currently on 5L N/C for past 24 hours. Currently has no complaints. Palliative team spoke with daughter and she is interested in giving her patient Vitamin C to assist with recovery and inquires about its use. - Objective MAR Reviewed: Yes Vital Signs & Weight: Vital Signs (12 hours) Temp Pulse Ox 03/09/20 05:30 97.7 F 03/09/20 00:00 98.1 F 03/08/20 20:50 97.8 F 03/08/20 20:00 98 Weight Admit Weight 70.806 kg Weight 68.067 kg Most Recent Monitor Data Heart Rate from ECG 70 NIBP 120/63 NIBP BP-Mean 82 Respiration from ECG 17 SpO2 100 I&O: 03/07/20 03/08/20 03/09/20 06:59 06:59 06:59 Intake Total 470 1101 1501 Output Total 2185 1575 1750 Balance -1715 -474 -249 Result Diagrams: 03/09/20 03:19 03/09/20 03:19 Phys Exam - Physical Examination Constitutional: NAD HEENT: moist MMs Neck: no JVD, supple Respiratory: no wheezing, clear to auscultation bilateral Cardiovascular: RRR, no significant murmur Gastrointestinal: no distention Musculoskeletal: no edema, pulses present Neurological: normal sensation Psychiatric: normal affect Skin: no rash Dx/Plan (1) COVID-19 Code(s): U07.1 - COVID-19 Status: Acute (2) Diabetes Code(s): E11.9 - TYPE 2 DIABETES MELLITUS WITHOUT COMPLICATIONS Status: Acute Qualifiers: Diabetes mellitus type: type 2 Diabetes mellitus tank terminal gauger insulin use: without mcfp use Diabetes mellitus complication status: with hyperglycemia Qualified Code(s): E11.65 - Type 2 diabetes mellitus with hyperglycemia (3) Hyponatremia Code(s): E87.1 - HYPO-OSMOLALITY AND HYPONATREMIA Status: Acute (4) Transaminitis Code(s): R74.0 - NONSPEC ELEV OF LEVELS OF TRANSAMNS & LACTIC ACID DEHYDRGNSE Status: Acute - Plan Plan: Patient is a 54 yo female who presented with SOB and hypoxia is found to have COVID 19: #Acute hypoxic respiratory failure 2/2 COVID-19 -Symptoms [place] [address]th, positive February 28 -Provide supportive care, pt has received IL-6 inhibitor, and convalescent plasma. Not candidate for Remdesevir d/t elevated transaminases -CXR shows bilateral opacities, worse on the right, monitor AM xray -Procal positive, completed azithromycin course (03/04-03/07) for CAP -Continue Decadron -CXR pending this AM-past few days have been stable -did not require BiPAP overnight, has been stable on 5L N/C with O2 sats 97-100 % #DM2, poorly controlled -A1C 14% -Humalog moderate SSI -Continue lantus for tank terminal gauger control, will titrate up, currently at 30 units qAM started 03/08, plan to increase by 15 units today #Hyponatremia, improving -Hypovolemic, hyponatremia 2/2 diabetes #Transaminitis -Covid vs other etiologies #LALITO -Improved #Dehydration -Improved Diet: CC VTE: th Lovenox Code status: FULL Dispo: Stable, condition overall improving this morning. Continue to monitor respiratory status. Will plan to transfer out of IMCU to COVID floor later today. Anticipate discharge in >48 hours. Addendum - Attending - Attending Attestation Date/Time: 03/09/20 [id number] I personally evaluated the patient and discussed the management with Dr. Means I agree with the History, Examination, Assessment and Plan documented above with any addition or exceptions noted below - Patient without complaints. Sitting up in chair. Tolerated nasal canula overnight. Afebrile VSS. A/P: 1) Acute hypoxic resp failure secondary to COVID pneumonia - improving; continue to wean O2 as tolerated. 2) DM - continue insulin and titrate as indicated.
--- NOTE | 2020-03-09 07:53 | RAD ---
EXAM: Single view of the chest HISTORY: Respiratory distress COMPARISON: 03/08/2020 FINDINGS: Single view of the chest shows a normal sized cardiomediastinal silhouette. Stable multifoc al mixed infiltrates are seen. There is elevation the left hemidiaphragm. The bones are unremarkable. IMPRESSION: Stable multifocal infiltrates
[2020-03-09] MEDS: Enoxaparin Sodium 80 MG/0.8 ML SYRINGE SC SCH ×2 (08:28→20:51)
[2020-03-09] MEDS: Amlodipine 5 MG TAB PO SCH (08:28)
[2020-03-09] MEDS: Dexamethasone 4 mg/ml Vial SLOW IVP SCH ×2 (08:28→20:52)
[2020-03-09] MEDS ORDERED: Insulin Glargine 30 UNITS in Pre-Filled Syringe 1 EACH SC SCH (09:00)
[2020-03-09] MEDS ORDERED: Insulin Glargine 35 UNITS in Pre-Filled Syringe 1 EACH SC SCH (09:00)
[2020-03-09] MEDS ORDERED: Insulin Glargine 10 UNITS in Pre-Filled Syringe 1 EACH SC SCH ×2 (10:00→12:30)
--- NOTE | 2020-03-09 21:11 | PRG ---
DATE OF SERVICE: 03/09/2020 SUBJECTIVE: Tierra Humphreys is in no distress. She is sitting at the side of bed with a nasal cannula in place. OBJECTIVE: LUNGS: Unchanged. HEART: Unchanged. ABDOMEN: Unchanged. ASSESSMENT AND PLAN: COVID infection, clinically stable on a cannula. She can be transferred out of the intermediate care unit. We will sign off. Job ID: [id number]
[2020-03-10 07:11] LABS: Hemoglobin 14.6 g/dL (12.0-16.0); Mean Corpuscular HGB CONC 32.3 g/dL (32.0-36.0); Mean Corpuscular Hemoglobin 29.5 pg (27.0-31.0); Mean Corpuscular Volume 91.4 fL (78.0-98.0); Mean Platelet Volume 6.7 fL (7.4-10.4); Platelet Count 552 thou/uL (130-400); RBC Distribution Width 11.6 % (11.5-14.5); Red Blood Cell (RBC) Count 4.96 mill/uL (4.20-5.40)
[2020-03-10 07:28] LABS: ALT (SGPT) 26 U/L (8-55); AST (SGOT) 18 U/L (5-34); Albumin 3.2 g/dL (3.5-5.0); Alkaline Phosphatase 311 U/L (40-110); Anion Gap 12 mmol/L (10-20); BUN (Urea Nitrogen) 28 mg/dL (9.8-20.1); Bilirubin, Total 0.4 mg/dL (0.2-1.2); Calc. Creatinine Clearance 92 mL/min (70-130); Calcium 8.9 mg/dL (7.8-10.44); Carbon Dioxide 28 mmol/L (22-29); Chloride 94 mmol/L (98-107); Estimated GFR-MDRD 81; Globulin 3.1 g/dL (2.4-3.5); Glucose 304 mg/dL (70-105); Potassium 4.7 mmol/L (3.5-5.1); Protein, Total 6.3 g/dL (6.0-8.3); Sodium 129 mmol/L (136-145)
[2020-03-10 08:21] LABS: Band 3 % (5-11); Lymphocytes 11 % (21-51); MDiff Complete? YES; Metamyelocyte 3 % (0-0); Monocytes 1 % (0-10); Myelocyte 1 % (0-0); Neutrophil 81 % (42-75); Platelet Morphology Comment Appears Increased; Polychromasia SLIGHT = 2-3 cells (100X) (0-2/hpf)
[2020-03-10] MEDS: Dexamethasone 4 MG TAB PO SCH (08:39)
[2020-03-10] MEDS: Enoxaparin Sodium 80 MG/0.8 ML SYRINGE SC SCH ×2 (08:39→21:03)
[2020-03-10] MEDS: Insulin Glargine 45 UNITS in Pre-Filled Syringe 1 EACH SC SCH (08:40)
[2020-03-10] MEDS: Amlodipine 5 MG TAB PO SCH ×2 (08:40→09:06)
--- NOTE | 2020-03-10 09:00 | PDOC.FM ---
- Subjective Subjective: Patient states she feels well this morning, is up at bedside eating breakfast. She reports that her breathing feels better. Was down to 4L O2 via N/C overnight. Was transferred out of [facility] to medical floor yesterday. Patient states that she knew she had diabetes, had been on Metformin and insulin in the past (does not remember dose). However she felt she wanted to pursue more natural remedies and so decided to stop taking these and started taking natural supplements instead. Yesterday was noted that the patient only received 10 units of Lantus, was not given 35 units. - Objective MAR Reviewed: Yes Vital Signs & Weight: Vital Signs (12 hours) Temp Pulse Resp BP BP Pulse Ox 03/10/20 05:00 97.7 F 71 18 128/76 96 03/10/20 01:00 97.5 F L 77 18 117/73 96 03/10/20 00:00 97.5 F L 77 117/73 96 03/09/20 21:00 97 F L 74 18 117/73 95 Weight Admit Weight 70.806 kg Weight 68.039 kg Most Recent Monitor Data Heart Rate from ECG 77 NIBP 138/75 NIBP BP-Mean 96 Respiration from ECG 19 SpO2 100 I&O: 03/09/20 03/10/20 03/11/20 06:59 06:59 06:59 Intake Total 1501 731 Output Total 1750 Balance -249 731 Result Diagrams: 03/10/20 06:50 03/10/20 06:50 Phys Exam - Physical Examination Constitutional: NAD HEENT: moist MMs, sclera anicteric Neck: no JVD, full ROM Respiratory: no wheezing, clear to auscultation bilateral Cardiovascular: RRR, no significant murmur Gastrointestinal: soft, no distention Musculoskeletal: no edema, pulses present Neurological: normal sensation, moves all 4 limbs Psychiatric: normal affect, A&O x 3 Skin: no rash, normal turgor Dx/Plan (1) COVID-19 Code(s): U07.1 - COVID-19 Status: Acute (2) Diabetes Code(s): E11.9 - TYPE 2 DIABETES MELLITUS WITHOUT COMPLICATIONS Status: Acute Qualifiers: Diabetes mellitus type: type 2 Diabetes mellitus intermediate insulin use: without termite renewal inspector use Diabetes mellitus complication status: with hyperglycemia Qualified Code(s): E11.65 - Type 2 diabetes mellitus with hyperglycemia (3) Hyponatremia Code(s): E87.1 - HYPO-OSMOLALITY AND HYPONATREMIA Status: Acute (4) Transaminitis Code(s): R74.0 - NONSPEC ELEV OF LEVELS OF TRANSAMNS & LACTIC ACID DEHYDRGNSE Status: Acute - Plan Plan: Patient is a 54 yo female who presented with SOB and hypoxia is found to have COVID 19: #Acute hypoxic respiratory failure 2/2 COVID-19 -Symptoms February 24, positive February 28 -Provide supportive care, pt has received IL-6 inhibitor, and convalescent plasma. Not candidate for Remdesevir d/t elevated transaminases -CXR shows bilateral opacities, worse on the right, monitor AM xray -Procal positive, completed azithromycin course (03/04-03/07) for CAP -Continue Decadron, transitioned to PO form today -CXR pending this AM-past few days have been stable, will discontinue daily CXR -did not require BiPAP overnight for past 2 days, has been stable for past 24 hours on N/C, currently at 4L with O2 sats 96-98% #DM2, poorly controlled -A1C 14% -Humalog moderate SSI -Continue lantus for intermediate control, will titrate up, currently at 45 units qAM starting today -was supposed to receive Lantus 45 yesterday but only 10 was given, was noted by nursing that did not give due to blood sugar being 132 at the time #Hyponatremia, improving -Hypovolemic, hyponatremia 2/2 diabetes -continue to monitor on AM lab #Transaminitis -Covid vs other etiologies #LALITO -Improved #Dehydration -Improved Diet: CC VTE: th Lovenox Code status: FULL Dispo: Stable, condition overall improving this morning. Continue to monitor respiratory status and instructed nursing to try to continue weaning down oxygen today. Anticipate discharge in next 48 hours. Addendum - Attending - Attending Attestation Date/Time: 03/10/20 7632 I personally evaluated the patient and discussed the management with Dr. Means I agree with the History, Examination, Assessment and Plan documented above with any addition or exceptions noted below - Patient without complaints. Denies any SOB. Afebrile VSS. A/P: 1) Acute hypoxic resp failure secondary to COVID 19 pneumonia - resolved; O2 weaned to 1LNC; will check ambulatory O2 and arrange for home O2 if indicated. 2) COVID pneumonia - improved. 3) DM- continue to adjust insulin
[2020-03-10] MEDS: HumaLOG 300 UNITS/3 ML VIAL SC PRN ×2 (12:28→17:14)
[2020-03-10] MEDS ORDERED: HumaLOG 300 UNITS/3 ML VIAL SC PRN (21:24)
[2020-03-11 06:43] LABS: Mean Corpuscular HGB CONC 32.4 g/dL (32.0-36.0); Mean Corpuscular Hemoglobin 29.2 pg (27.0-31.0); Mean Corpuscular Volume 90.2 fL (78.0-98.0); Mean Platelet Volume 6.8 fL (7.4-10.4); Platelet Count 571 thou/uL (130-400); RBC Distribution Width 11.6 % (11.5-14.5); Red Blood Cell (RBC) Count 4.79 mill/uL (4.20-5.40); White Blood Cell (WBC) Count 8.9 thou/uL (4.8-10.8)
[2020-03-11 07:04] LABS: ALT (SGPT) 23 U/L (8-55); AST (SGOT) 13 U/L (5-34); Albumin 3.2 g/dL (3.5-5.0); Alkaline Phosphatase 261 U/L (40-110); Anion Gap 10 mmol/L (10-20); BUN (Urea Nitrogen) 27 mg/dL (9.8-20.1); Bilirubin, Total 0.4 mg/dL (0.2-1.2); Calc. Creatinine Clearance 101 mL/min (70-130); Calcium 8.7 mg/dL (7.8-10.44); Carbon Dioxide 28 mmol/L (22-29); Chloride 97 mmol/L (98-107); Estimated GFR-MDRD 90; Globulin 2.9 g/dL (2.4-3.5); Glucose 134 mg/dL (70-105); Potassium 4.7 mmol/L (3.5-5.1); Protein, Total 6.1 g/dL (6.0-8.3); Sodium 130 mmol/L (136-145)
--- NOTE | 2020-03-11 07:11 | PDOC.FM ---
- Subjective Subjective: Patient feeling well this morning ,no respiratory complaints. O2 requirement down to 1L via N/C. Did have walking test on room air with nursing yesterday and desat to 87%. Home O2 arranged and should be delivered to patient today. Patient states she is ready to go home. - Objective MAR Reviewed: Yes Vital Signs & Weight: Vital Signs (12 hours) Temp Pulse Resp BP BP BP Pulse Ox 03/11/20 05:00 97.9 F 70 18 130/78 96 03/11/20 01:00 97.5 F L 71 18 116/75 95 03/10/20 21:00 97.6 F 76 18 110/68 92 L 03/10/20 20:00 92 L Weight Admit Weight 70.806 kg Weight 67.585 kg Most Recent Monitor Data Heart Rate from ECG 77 NIBP 138/75 NIBP BP-Mean 96 Respiration from ECG 19 SpO2 100 I&O: 03/10/20 03/11/20 03/12/20 06:59 06:59 06:59 Intake Total 731 960 Balance 731 960 Result Diagrams: 03/11/20 06:33 03/11/20 06:33 Phys Exam - Physical Examination Constitutional: NAD HEENT: moist MMs, sclera anicteric Neck: no JVD, supple, full ROM Respiratory: no wheezing, no rhonchi, clear to auscultation bilateral Cardiovascular: RRR, no significant murmur Musculoskeletal: no edema Neurological: non-focal, normal sensation, moves all 4 limbs Psychiatric: normal affect, A&O x 3 Skin: no rash, normal turgor Dx/Plan (1) COVID-19 Code(s): U07.1 - COVID-19 Status: Acute (2) Diabetes Code(s): E11.9 - TYPE 2 DIABETES MELLITUS WITHOUT COMPLICATIONS Status: Acute Qualifiers: Diabetes mellitus type: type 2 Diabetes mellitus senior living insulin use: without moth exterminator use Diabetes mellitus complication status: with hyperglycemia Qualified Code(s): E11.65 - Type 2 diabetes mellitus with hyperglycemia (3) Hyponatremia Code(s): E87.1 - HYPO-OSMOLALITY AND HYPONATREMIA Status: Acute (4) Transaminitis Code(s): R74.0 - NONSPEC ELEV OF LEVELS OF TRANSAMNS & LACTIC ACID DEHYDRGNSE Status: Acute - Plan Plan: Patient is a 54 yo female who presented with SOB and hypoxia is found to have COVID 19: #Acute hypoxic respiratory failure 2/2 COVID-19 -Symptoms February 24, positive February 28 -Provide supportive care, pt has received IL-6 inhibitor, and convalescent plasma. Not candidate for Remdesevir d/t elevated transaminases -CXR shows bilateral opacities, worse on the right -Procal positive, completed azithromycin course (03/04-03/07) for CAP -Continue Decadron, transitioned to PO form 03/10, discontinue today -CXR pending this AM-past few days have been stable, will discontinue daily CXR -did not require BiPAP overnight for past 3 days, has been stable for past 48 hours on N/C, currently at 1L with O2 sats 92-96% -had walking test with nursing yesterday with O2 sat down to 87%, home O2 arranged to be delivered today #DM2, poorly controlled -A1C 14% -Humalog moderate SSI -Continue lantus for moth exterminator control, will titrate up, currently at 45 units qAM starting 03/10, continue to titrate in outpatient setting #Hyponatremia, improving -Hypovolemic, hyponatremia 2/2 diabetes -continue to monitor on AM lab #Transaminitis -Covid vs other etiologies #LALITO -Improved #Dehydration -Improved Diet: CC VTE: th Lovenox Code status: FULL Dispo: Stable, condition overall improving this morning. Continue to monitor respiratory status and instructed nursing to try to continue weaning down oxygen today. Anticipate discharge to home later today once portable O2 delivered. Addendum - Attending - Attending Attestation Date/Time: 03/11/20 1190 I personally evaluated the patient and discussed the management with Dr. Means I agree with the History, Examination, Assessment and Plan documented above with any addition or exceptions noted below - Patient without complaints. Denies any SOB/cough. Afebrile VSS. A/P: 1) Acute hypoxic resp failure secondary to COVID pneumonia- resolved; 2) COVID pneumonia- improving; plan to d /c home today with O2, 3) DM- stable; continue current meds. D/c home today and f/u at [facility].
[2020-03-11 07:39] LABS: Band 5 % (5-11); Lymphocytes 8 % (21-51); MDiff Complete? YES; Monocytes 5 % (0-10); Myelocyte 1 % (0-0); Neutrophil 79 % (42-75); Platelet Morphology Comment Appears Increased; RBC Morphology Normal; Reactive Lymphocytes 2 % (0-10)
[2020-03-11] MEDS: Dexamethasone 4 MG TAB PO SCH (08:52)
[2020-03-11] MEDS: Amlodipine 5 MG TAB PO SCH ×2 (08:52→10:32)
[2020-03-11] MEDS: Enoxaparin Sodium 80 MG/0.8 ML SYRINGE SC SCH (08:52)
[2020-03-11] MEDS: Insulin Glargine 45 UNITS in Pre-Filled Syringe 1 EACH SC SCH (08:53)
[2020-03-11] MEDS ORDERED: Polyethylene Glycol 3350 17 GM Packet PO SCH (11:00)
[2020-03-11] MEDS: HumaLOG 300 UNITS/3 ML VIAL SC PRN (12:10)
[2020-03-11 13:37] VITALS: BP 123/78; TEMP 97.5
== END 2020-03-11 13:30 | disposition home or self-care (01) | DRG 177 ==
LOC: ERS 21:08 → IMCU/EMU 23:09 → T4-A 03-09 17:08
PROVIDERS: ADMIT Student in an Organized Health Care Education/Training Program; ATTEND Student in an Organized Health Care Education/Training Program
PROC: 8E0ZXY6 Isolation (ICD-10-PCS; principal; 2020-03-03)
PROC: 5A09457 Assistance with Respiratory Ventilation, 24-96 Consecutive Hours, Continuous Positive Airway Pressure (ICD-10-PCS; 2020-03-03)
DX: U07.1 COVID-19 (principal); J96.01 Acute respiratory failure with hypoxia; J12.89 Other viral pneumonia; N17.9 Acute kidney failure, unspecified; E87.1 Hypo-osmolality and hyponatremia; E87.5 Hyperkalemia; E86.0 Dehydration; N18.2 Chronic kidney disease, stage 2 (mild); E11.22 Type 2 diabetes mellitus with diabetic chronic kidney disease; E11.65 Type 2 diabetes mellitus with hyperglycemia
CPT/HCPCS: 36415; 36416; 36430; 71045; 80053; 80061; 81015; 82010; 82088; 82533; 82728; 82805; 83036; 83605; 83615; 83880; 83930; 83935; 84133; 84145; 84300; 84443; 84484; 85007; 85025; 85027; 85379; 85520; 86140; 86850; 86900; 86901; 87040; 93005; 94660; 96361; 96365; 96366; 96375; J0692; J0696; J1100; J1650; J1815; J1940; J2930; J3262; J3370; J3490; J7620; J8540

== ENCOUNTER 2020-10-09 00:36 | Emergency (ER) | payer BC, OTHER | END 2020-10-09 02:10 | disposition home or self-care (01) | LOC: ERS 00:36 | DX: R22.0 Localized swelling, mass and lump, head (principal); E11.9 Type 2 diabetes mellitus without complications; Z79.84 Long term (current) use of oral hypoglycemic drugs | CPT/HCPCS: 70480 ==

== ENCOUNTER 2023-05-13 13:42 | Emergency (ER) | payer OTHER, SELFPAY ==
[2023-05-13 16:18] LABS: ALT (SGPT) 18 U/L (8-55); AST (SGOT) 22 U/L (5-34); Albumin 4.4 g/dL (3.5-5.0); Alkaline Phosphatase 68 U/L (40-110); Anion Gap 16 mmol/L (10-20); BUN (Urea Nitrogen) 32 mg/dL (9.8-20.1); Bilirubin, Total 0.3 mg/dL (0.2-1.2); Calc. Creatinine Clearance 0 mL/min (70-130); Calcium 10.5 mg/dL (7.8-10.44); Carbon Dioxide 23 mmol/L (22-29); Chloride 102 mmol/L (98-107); Estimated GFR 48; Globulin 4.3 g/dL (2.4-3.5); Glucose 65 mg/dL (70-105); Potassium 5.2 mmol/L (3.5-5.1); Protein, Total 8.7 g/dL (6.0-8.3); Sodium 136 mmol/L (136-145)
[2023-05-13 17:26] LABS: #Basophils 0.1 thou/uL (0.0-0.2); #Eosinphils 0.3 thou/uL (0.0-0.7); #Monocytes 0.6 thou/uL (0.11-0.59); #Neutrophils 5.3 thou/uL (1.40-6.50); %Basophils 0.6 % (0.0-1.0); %Eosinophils 3.3 % (0.0-10.0); %Lymphocytes 21.7 % (21.0-51.0); %Monocytes 7.3 % (0.0-10.0); %Neutrophils 66.8 % (42.0-75.0); Hematocrit 33.4 % (36.0-47.0); Hemoglobin 10.9 g/dL (12.0-16.0); Mean Corpuscular HGB CONC 32.6 g/dL (32.0-36.0); Mean Corpuscular Hemoglobin 29.7 pg (27.0-31.0); Mean Platelet Volume 9.9 fL (7.4-10.4); Platelet Count 313 10x3/uL (130-400); RBC Distribution Width 13.5 % (11.5-14.5); Red Blood Cell (RBC) Count 3.67 mill/uL (4.20-5.40)
== END 2023-05-13 18:12 | disposition home or self-care (01) ==
LOC: ERS 13:42
DX: E11.621 Type 2 diabetes mellitus with foot ulcer (principal); N17.9 Acute kidney failure, unspecified; E87.5 Hyperkalemia; D64.9 Anemia, unspecified; E83.52 Hypercalcemia; Z79.84 Long term (current) use of oral hypoglycemic drugs; Z79.4 Long term (current) use of insulin; Z79.899 Other long term (current) drug therapy
CPT/HCPCS: 36415; 36416; 80053; 85025; 85652; 86140; 87070; 87077; 87186; 87205; 93005